=== PATIENT | male | born 1970 | race Caucasian/White ===

== ENCOUNTER 2016-11-17 19:18 | Emergency (ER) | payer SELFPAY ==
[2016-11-17] MEDS ORDERED: LIDOCAINE HCL 20 ML VIAL ONE (19:47)
[2016-11-17] MEDS ORDERED: DIPHTH,PERTUSS(ACELL),TET VAC 0.5 ML VIAL IM ONE (20:04)
--- OUTSIDE RECORDS SUMMARY | 2016-11-17 20:18 | XMS REPORT | Continuity of Care Document ---
:1970 Author Organization [facility] ([facility]) Address [address] [place] [address] Phone [phone] Care Team Providers Name Role Phone Unavailable Primary Care Provider Unavailable Source Comments This disclosure is being made pursuant to the Care Everywhere program, applicable federal and state laws, and may not contain all informaitonavailable regarding this patient.[facility] ([facility]) Active Allergies and Adverse Reactions Not on File Current Medications Not on file Active Problems Not on file Social History Tobacco Use Types Packs/Day Years Used Date Never Assessed Plan of Care Health Maintenance Due Date Last Done Comments Hepatitis B Vaccine (1 of 3 - Primary Series) 1970 Tdap Vaccine 1979 Lipid Disorder Screening 1986 MMR Vaccine 1986 Td Vaccine 1986 Influenza Vaccine: Seasonal (#1) 02/08/2016 Results from Last 3 Months Not on file
[2016-11-17] MEDS: DIPHTH,PERTUSS(ACELL),TET VAC 0.5 ML VIAL IM ONE (20:20)
[2016-11-17] MEDS ORDERED: SULFAMETHOXAZOLE/TRIMETHOPRIM 1 TAB TABLET ONE (20:26)
--- NOTE | 2016-11-17 20:26 | ERNOTE ---
Upper Extremity HPI - Narrative Date of Service: 11/17/16 - General Extremities Pain Location: 3rd finger: right Time Seen by Provider: 11/17/16 20:02 Source: patient Exam Limitations: no limitations - Immun/Allergies/Home Medications Immunizations: IMMUNIZATION HX Immunizations Up to Date No History of Influenza Vaccine No Hx Pneumococcal Vaccination No Allergies/Adverse Reactions: Allergies Allergy/AdvReac Type Severity Reaction Status Date / Time latex Allergy Intermediate RASH, Verified 11/17/16 19:44 THROAT SWELLING, ITCHING lidocaine Allergy Intermediate THROAT AND Verified 11/17/16 19:44 TONGUE SWELLING procaine HCl [From Novocain] Allergy Intermediate THROAT AND Verified 11/17/16 19:44 TONGUE SWELLING adhesive AdvReac Mild ADHESIVE Verified 11/17/16 19:44 TAPE CAUSES RASH CANE SUGAR Allergy Intermediate THROAT AND Uncoded 11/17/16 19:44 TONGUE SWELLING Home Medications: HOME MEDICATIONS Aspirin 81 mg PO DAILY 04/01/16 [Last Taken Unknown] Atorvastatin Calcium 80 mg PO DAILY 11/17/16 [Last Taken Unknown] Carvedilol [Coreg] 3.125 mg PO DAILY 11/17/16 [Last Taken Unknown] Prasugrel HCl [Effient] 10 mg PO DAILY 11/17/16 [Last Taken Unknown] Sulfamethoxazole/Trimethoprim [Bactrim Ds] 1 tab PO BID #28 tab 11/17/16 [Last Taken Unknown] - History of Present Illness Narrative: Pt. comes in with c/o fish hook in his R third finger that he got two hours ago. Pt. states that he cut off the other two hooks from the treble hook and attempted to remove the hook with a pair of pliers but was unable to dislodge the hook himself. Pt. is unsure of when his last tetanus vaccine was. Review of Systems - Review of Systems Constitutional: Present: no symptoms reported. Absent: recent illness, fever, chills, fatigue, malaise EYE: Present: no symptoms reported ENT: Present: no symptoms reported Respiratory: Present: no symptoms reported. Absent: shortness of breath, cough , wheezing Cardiology: Present: no symptoms reported. Absent: chest pain, palpitations, edema Genitourinary: Present: no symptoms reported Musculoskeletal: Present: no symptoms reported. Absent: back pain, joint pain Skin: Present: other - fish hook in R third finger volar Neurological: Present: no symptoms reported. Absent: headache, dizziness/light- headedness, numbness, tingling All Other Systems: All systems neg except as marked - Patient's Past Medical History Patient History - Medical: Headache, Migraines Patient History - Cardiac/Respiratory: Myocardial Infarction Patient History - Cancer: No Hx of Cancer Patient History - Surgical Procedures: No surgical history Patient History - Other: None - Social History Living Situations: home Abuse History: No History of abuse Psych History: No pertinent hx Smoking Status: Current every day smoker Patient requests Smoking Cessation Consult: No Initiate information on Smoking Cessation: No Alcohol Use: none Drug Use: other - Immunizations Immunizations Up to Date: No Hx Pneumococcal Vaccination: No History of Influenza Vaccine: No Physical Exam - Physical Exam General Appearance: Present: wd/wn, alert, no apparent distress Eye Exam: Normal inspection: bilateral, PERRL: bilateral, EOMI: bilateral Ears, Nose, Throat: Present: normal ENT inspection, normal pharynx Neck: Present: normal inspection, nontender. Absent: lymphadenopathy (R), lymphadenopathy (L) Respiratory: Present: no respiratory distress, normal breath sounds, no accessory muscle use, chest nontender, lungs clear Cardiovascular/Chest: Present: regular rate, rhythm, no murmur, normal peripheral pulses Gastrointestinal/Abdominal: Present: normal bowel sounds, nontender Back Exam: Present: normal inspection, normal range of motion, no CVA tenderness , no vertebral tenderness Extremity Exam: Present: normal range of motion, no edema, other - fish hook in R third finger volar Neurological Exam: Present: alert, oriented, normal mood/affect, no motor/ sensory deficits Skin Exam: Present: normal color, warm/dry, other - fish hook in R third finger volar. Absent: pallor, skin rash ED Progress - Vital Signs Patient's Vital Signs:: I have reviewed the patient's vital signs. Vital Signs: Vital Signs 11/17/16 19:40 Temperature 36.9 C Pulse Rate 97 Respiratory 18 Rate Blood Pressure 157/89 O2 Sat by Pulse 97 Oximetry - Progress/Reassessment Chief Complaint: Hand Injury/Pain Procedures Date and Time: 11/17/16 21:19 t Location: fish hook in R third finger volar How removed: Forceps Complications: Pt tommy procedure well Departure Clinical Impression: Fish hook injury of finger of right hand Qualifiers: Encounter type: initial encounter Qualified Code(s): S69.91XA - Unspecified injury of right wrist, hand and finger(s), initial encounter - Departure Disposition: Home self-care Condition: Good Instructions: Sliver Removal, Care After Additional Instructions: Please follow up with primary provider in 2-3 days if no improvement or you start to have signs and symptoms of infection. Prescriptions: Sulfamethoxazole/Trimethoprim [Bactrim Ds] 1 tab PO BID #28 tab
[2016-11-17] MEDS: SULFAMETHOXAZOLE/TRIMETHOPRIM 1 TAB TABLET PO ONE (20:27)
[2016-11-17 21:09] VITALS: BP 136/95
== END 2016-11-17 20:35 | disposition home or self-care (01) ==
LOC: ER 19:18
DX: S61.244A Puncture wound with foreign body of right ring finger without damage to nail, initial encounter (principal); X78.8XXA Intentional self-harm by other sharp object, initial encounter; Y93.89 Activity, other specified; Y92.9 Unspecified place or not applicable; Z23 Encounter for immunization

== ENCOUNTER 2017-06-08 18:24 | Emergency (ER) | payer SELFPAY ==
[2017-06-08 18:40] VITALS: BP 136/89
--- NOTE | 2017-06-08 19:38 | ERNOTE ---
Psychological HPI - General Chief Complaint: Psychiatric Problem Source: Reports: patient Exam Limitations: Reports: no limitations - Immun/Allergies/Home Medications Allergies/Adverse Reactions: Allergies latex Allergy (Intermediate, Verified 11/17/16 19:44) RASH, THROAT SWELLING, ITCHING lidocaine Allergy (Intermediate, Verified 11/17/16 19:44) THROAT AND TONGUE SWELLING procaine HCl [From Novocain] Allergy (Intermediate, Verified 11/17/16 19:44) THROAT AND TONGUE SWELLING adhesive Adverse Reaction (Mild, Verified 11/17/16 19:44) ADHESIVE TAPE CAUSES RASH CANE SUGAR Allergy (Intermediate, Uncoded 11/17/16 19:44) THROAT AND TONGUE SWELLING Home Medications: HOME MEDICATIONS Aspirin 81 mg PO DAILY 04/01/16 [Last Taken Unknown] Sulfamethoxazole/Trimethoprim [Bactrim Ds] 1 tab PO BID #28 tab 11/17/16 [Last Taken Unknown] - History of Present Illness Narrative: Patient recently went through a divorce six months ago and the relationship with his exwife is difficult at times. He lives with his daughter and states that he 'just had enough' today. He wrote her a note, left it in his bedroom, and left the house around 11:00 and walked [facility]. He had no plan how to kill himself, has not had any prior attempts, nor history of depression. After about an hour of walking [facility] he felt better and came back to the house around 16:00 to destroy the note and found that his daughter had already opened it. He went to find his daughter at the bar and found out that she had notified the police who was looking for him. He was apprehended shortly after, did not resist and was brought to the ER. He denies any suicidal ideation on repeated asking. "if I wanted to kill myself I would have done it a long time ago" Time Seen by Provider: 06/08/17 19:15 Review of Systems - Review of Systems Constitutional: Absent: recent illness, fever ENT: Absent: nose congestion, sore throat Respiratory: Absent: shortness of breath Cardiology: Absent: chest pain Gastrointestinal/Abdominal: Absent: nausea, abdominal pain Genitourinary: Present: no symptoms reported Musculoskeletal: Present: no symptoms reported Skin: Present: other - tazer robin on left flank Neurological: Absent: headache Psych: Present: no symptoms reported - Patient's Past Medical History Patient History - Medical: Headache, Migraines Patient History - Cardiac/Respiratory: Myocardial Infarction Patient History - Cancer: No Hx of Cancer Patient History - Surgical Procedures: Cardiac stent, Orthopedic Patient History - Other: None - Social History Living Situations: other Abuse History: No History of abuse Psych History: No pertinent hx Smoking Status: Heavy tobacco smoker Patient requests Smoking Cessation Consult: No Initiate information on Smoking Cessation: No Alcohol Use: none Drug Use: none - Immunizations Immunizations Up to Date: Yes Hx Pneumococcal Vaccination: No History of Influenza Vaccine: No Psychological Exam - Exam General Appearance: Present: wd/wn, alert, no apparent distress Head Exam: Present: normal inspection Neurological: Present: alert, normal mood/affect, calm, oriented x 3 Thoughts/Hallucinations: Present: normal thought pattern, no apparent hallucination Behavior/Eye Contact/Speech: Present: cooperative, good eye contact, normal speech Eye Exam: Normal inspection: bilateral Respiratory: Present: no respiratory distress, normal breath sounds, chest nontender, lungs clear Cardiovascular/Chest: Present: regular rate, rhythm, no murmur Back Exam: Present: no vertebral tenderness, other - tazer robin on left lower flank, contusion and abrasion left lower flank Extremity Exam: Present: normal inspection - no sign of injury Skin Exam: Present: normal color, warm/dry ED Progress - Vital Signs Patient's Vital Signs:: I have reviewed the patient's vital signs. Vital Signs: Vital Signs 06/08/17 18:31 Temperature 36.7 C Pulse Rate 109 H Respiratory 18 Rate Blood Pressure 136/89 O2 Sat by Pulse 98 Oximetry - Progress/Reassessment Chief Complaint: Psychiatric Problem Departure Clinical Impression: Stress reaction - Departure Disposition: Home self-care Condition: Stable Instructions: Suicidal Feelings: How to Help Yourself Additional Instructions: call the clinic for a follow up appointment consider counselling Referrals: Annabelle Fitch DO [Staff Physician] -
== END 2017-06-08 19:35 | disposition home or self-care (01) ==
LOC: ER 18:24
DX: F43.0 Acute stress reaction (principal); I25.2 Old myocardial infarction; Z95.5 Presence of coronary angioplasty implant and graft; F17.200 Nicotine dependence, unspecified, uncomplicated